=== PATIENT | female | born 1950 | race Caucasian/White ===

== ENCOUNTER → 2016-07-19 | Outpatient (CLI) | payer MEDICARE, OTHER ==
--- NOTE | 2016-07-19 12:08 | RAD ---
DATE: 07/19/2016 EXAM: MAMMO VIELKA SCREENING BILATERAL Bilateral digital screening mammography to include digital breast tomosynthesis (3D mammography) HISTORY: Screening study. COMPARISON: 11/26/2011 This study was interpreted with the benefit of Computerized Aided Detection (CAD). FINDINGS: Digital MLO and CC mammograms of both breasts were obtained. An additional digital MLO mammogram the left breast was obtained. Additionally digital breast tomosynthesis (3D mammography) images of both breasts in the MLO and CC projections were performed. Comparison study is dated 11/26/2011. The breast parenchyma is composed of scattered fibroglandular densities which can obscure a lesion on mammography (breast density code B). No spiculated mass is seen. No malignant appearing calcification or area of architectural distortion is noted. Benign-appearing and vascular calcifications are seen within both breasts, unchanged. Digital breast tomosynthesis images demonstrate no spiculated mass or malignant appearing calcification. Since the previous examination there has been no significant interval change. IMPRESSION: BI-RADS Category 1, negative. There is no mammographic evidence of malignancy. Routine yearly screening mammography is recommended for follow-up. BI-RADS CATEGORY: 1 NEGATIVE RECOMMENDED FOLLOW-UP: 12M 12 MONTH FOLLOW-UP PQRS compliance statement: Patient information was entered into a reminder system with a target due date 07/19/2017 for the next mammogram. Mammography is a sensitive method for finding small breast cancers, but it does not detect them all and is not a substitute for careful clinical examination. A negative mammogram does not negate a clinically suspicious finding and should not result in delay in biopsying a clinically suspicious abnormality. "Our facility is accredited by the [employer] Mammography Program."
== END | disposition home or self-care (01) ==
LOC: MAMMO 08:40
PROVIDERS: ATTEND Physician Assistant
DX: Z12.31 Encounter for screening mammogram for malignant neoplasm of breast (principal)
CPT/HCPCS: 77063; G0202; 77067

== ENCOUNTER 2016-10-29 13:47 | Emergency (ER) | payer MEDICARE, OTHER ==
[~2016-10-29] VITALS: Ht 165.1 cm; Wt 79.4 kg
--- NOTE | 2016-10-29 14:19 | PHYS DOC ---
Adult General Chief Complaint Chief Complaint: MULTIPLE COMPLAINTS HPI HPI Patient is a 66 year old F who presents with nausea and vomiting since last night. Patient states that she has some mild generalized abdominal tenderness with associated nausea and vomiting and diarrhea since last night. Patient denies any fevers. Patient denies any point tenderness. Patient denies any chest pain or shortness of breath. Patient states it is not related to food. Patient denies any dysuria. Patient has no other complaints. Review of Systems Review of Systems GEN: Denies fevers, chills, sweats HEENT: Denies blurred vision, sore throat CV: Denies chest pain RESP: Denies shortness of air, cough GI: n/v/d NEURO: Denies confusion, dizziness MSK: Denies weakness, joint pain/swelling Current Medications Current Medications Current Medications Medications (Trade) Dose Ordered Sig/Kaye Start Time Stop Time Status Last Admin Dose Admin Ondansetron HCl (Zofran Odt) 4 mg 1X ONCE 10/29/16 14:15 10/29/16 14:16 UNV Sodium Chloride 1,000 ml @ 1,000 mls/hr 1X ONCE 10/29/16 14:15 10/29/16 15:14 UNV Allergies Allergies Allergies Coded Allergies Type Severity Reaction Last Updated Verified No Known Drug Allergies 10/29/16 No Physical Exam Physical Exam GEN.: No apparent distress. Alert and oriented. HEENT: Head is normocephalic, atraumatic NECK: Supple. LUNGS: CTAB. HEART: RRR, S1, S2 present. Peripheral pulses intact ABDOMEN: Soft, nontender. Positive bowel sounds. EXTREMITIES: Without any cyanosis. NEUROLOGIC: Normal speech, normal tone PSYCHIATRIC: Normal affect, normal mood. SKIN: No ulcerations Current Patient Data Lab Results Laboratory Tests Test 10/29/16 14:16 White Blood Count 8.2 x10^3/uL Red Blood Count 4.41 x10^6/uL Hemoglobin 15.5 g/dL Hematocrit 45.9 % Mean Corpuscular Volume 104 fL Mean Corpuscular Hemoglobin 35 pg Mean Corpuscular Hemoglobin Concent 34 g/dL Red Cell Distribution Width 13.1 % Platelet Count 276 x10^3/uL Neutrophils (%) (Auto) 91 % Lymphocytes (%) (Auto) 4 % Monocytes (%) (Auto) 5 % Eosinophils (%) (Auto) 0 % Basophils (%) (Auto) 1 % Neutrophils # (Auto) 7.5 x10^3uL Lymphocytes # (Auto) 0.3 x10^3/uL Monocytes # (Auto) 0.4 x10^3/uL Eosinophils # (Auto) 0.0 x10^3/uL Basophils # (Auto) 0.0 x10^3/uL Sodium Level 145 mmol/L Potassium Level 4.5 mmol/L Chloride Level 106 mmol/L Carbon Dioxide Level 29 mmol/L Anion Gap 10 Blood Urea Nitrogen 33 mg/dL Creatinine 1.6 mg/dL Estimated GFR (Cockcroft-Gault) 32.1 BUN/Creatinine Ratio 21 Glucose Level 148 mg/dL Calcium Level 8.7 mg/dL Total Bilirubin 1.5 mg/dL Aspartate Amino Transf (AST/SGOT) 19 U/L Alanine Aminotransferase (ALT/SGPT) 22 U/L Alkaline Phosphatase 100 U/L Total Protein 7.2 g/dL Albumin 4.2 g/dL Albumin/Globulin Ratio 1.4 Current Medications Medications (Trade) Dose Ordered Sig/Kaye Route PRN Reason Start Time Stop Time Status Last Admin Dose Admin Sodium Chloride 1,000 ml @ 1,000 mls/hr 1X ONCE IV 10/29/16 14:30 10/29/16 15:29 DC 10/29/16 14:55 Ondansetron HCl (Zofran Odt) 4 mg 1X ONCE PO 10/29/16 14:30 10/29/16 14:31 DC 10/29/16 14:50 Iohexol (Omnipaque 300 Mg/ml) 75 ml 1X ONCE IV 10/29/16 14:30 10/29/16 14:31 DC EKG EKG [] Radiology/Procedures Radiology/Procedures History: Nausea, vomiting, diarrhea since Friday Comparison: CT abdomen and pelvis dated 06/22/2012 Technique: Helical CT of the abdomen and pelvis was performed from the lung bases through the ischial tuberosities. Axial and coronal reconstructions were obtained. Abdomen Findings: Patient motion. Bilateral linear opacities likely related atelectasis versus scarring. The visualized lung bases are otherwise clear. Evaluation of visceral organs is limited without intravenous contrast. Cholecystectomy The liver, spleen, pancreas, and bilateral adrenal glands are normal. Unchanged 4.5 x 4.5 cm simple, partially exophytic cyst off the interpolar region of the right kidney. Bilateral kidneys otherwise do not demonstrate focal abnormality. There is no hydronephrosis. Moderate sized hiatal hernia. Visualized loops of l small bowel are normal. Apparent fat stranding around multiple loops of bowel in the left hemiabdomen is secondary to patient motion. Mild colonic diverticulosis without evidence of diverticulitis. Fluid within the cecum and ascending colon. There is no evidence of bowel obstruction. Appendix appears within normal limits. There is no significant abdominal adenopathy. Mild atherosclerosis of the normal caliber abdominal aorta and its branches. Pelvis findings: Urinary bladder is decompressed limiting evaluation. Normal uterus and ovaries. There is no free fluid. There is no significant pelvic or inguinal adenopathy. There is no acute bony abnormality. Moderate multilevel degenerative changes of the visualized spine. Bilateral L5 pars defects. ANCILLARY FINDINGS: 1. Cholecystectomy. 2. Moderate-sized hiatal hernia. 3. Bilateral L5 pars defects.. IMPRESSION: 1. Fluid within the cecum and ascending colon consistent with patient's given history of diarrhea. 2. Mild clonic diverticulosis without evidence of diverticulitis.[] Course & Med Decision Making Course & Med Decision Making Pertinent Labs and Imaging studies reviewed. (See chart for details) ED course: Patient was seen and evaluated CBC, CMP, UA, CT scan of pelvis were ordered 1622: Discussed lab work and CT results with the daughter and patient, discussed plan to treat her urine with antibiotics and recommended short-term follow-up with PCP. Daughter at bedside to take an patient home, patient has no complaints MDM: After reviewing the chart, CC/HPI/PMH, physical exam, [lab results], [ radiological results], I do not believe the patient has an intra-abdominal emergency warranting further workup and/or admission at this time. We'll give the patient and back to treat for UTI. Daughter is comfortable taking the patient home. Patient is stable for discharge. Additional verbal discharge instructions were provided to the patient and that if symptoms get worse or any new symptoms arise that are worrisome to the patient she is to return to the emergency room immediately [] Dragon Disclaimer Dragon Disclaimer This chart was dictated in whole or in part using Voice Recognition software in a busy, high-work load, and often noisy Emergency Department environment. It may contain unintended and wholly unrecognized errors or omissions. Departure Departure: Impression: Primary Impression: UTI (urinary tract infection) Additional Impression: Nausea and vomiting Disposition: HOME, SELF-CARE Condition: IMPROVED Referrals: LYNDA FUNEZ PAC (PCP) Patient Instructions: Nausea and Vomiting, [id number], Urinary Tract Infection Additional Instructions: Please follow up with her family doctor next one to 2 days Scripts Nitrofurantoin Monohyd/M-Cryst (MACROBID 100 MG CAPSULE) 100 Mg Capsule 1 CAP PO BID, #14 CAP Prov: LITA WEST DO 10/29/16 Problem Qualifiers LITA WEST DO Oct 29, 2016 14:19
[2016-10-29 14:27] LABS: BASO % 1 % (0-3); EOS % 0 % (0-3); HEMATOCRIT 45.9 % (36.0-47.0); HEMOGLOBIN 15.5 g/dL (12.0-15.5); LYMPH # 0.3 x10^3/uL (1.0-4.8); LYMPH % 4 % (24-48); MEAN CORPUSCULAR HEMOGLOBIN 35 pg (25-35); MEAN CORPUSCULAR HGB CONC 34 g/dL (31-37); MEAN CORPUSCULAR VOLUME 104 fL (79-100); MONO # 0.4 x10^3/uL (0.0-1.1); MONO % 5 % (0-9); NEUT # 7.5 x10^3uL (1.8-7.7); NEUT % 91 % (31-73); PLATELET COUNT 276 x10^3/uL (140-400); RED BLOOD COUNT 4.41 x10^6/uL (3.50-5.40); RED CELL DISTRIBUTION WIDTH 13.1 % (11.5-14.5); WHITE BLOOD COUNT 8.2 x10^3/uL (4.0-11.0)
[2016-10-29] MEDS ORDERED: IOHEXOL 300 MG/ML 75 ML VIAL. IV ONE (14:30)
[2016-10-29] MEDS ORDERED: ONDANSETRON ODT 4 MG TAB.RAPDIS PO ONE (14:30)
[2016-10-29] MEDS ORDERED: IV NORMAL SALINE 1,000ML 1,000 ML IV ONE (14:30)
[2016-10-29 14:37] LABS: ALBUMIN 4.2 g/dL (3.4-5.0); ALBUMIN/GLOBULIN RATIO 1.4 (1.0-1.7); CALCIUM 8.7 mg/dL (8.5-10.1); CREATININE 1.6 mg/dL (0.6-1.0); GFR 32.1; POTASSIUM 4.5 mmol/L (3.5-5.1); TOTAL BILIRUBIN 1.5 mg/dL (0.2-1.0); TOTAL PROTEIN 7.2 g/dL (6.4-8.2)
[2016-10-29 14:55] VITALS: BP 120/87
--- NOTE | 2016-10-29 15:35 | RAD ---
CT ABDOMEN AND PELVIS WITHOUT IV CONTRAST History: Nausea, vomiting, diarrhea since Friday Comparison: CT abdomen and pelvis dated 06/22/2012 Technique: Helical CT of the abdomen and pelvis was performed from the lung bases through the ischial tuberosities. Axial and coronal reconstructions were obtained. Abdomen Findings: Patient motion. Bilateral linear opacities likely related atelectasis versus scarring. The visualized lung bases are otherwise clear. Evaluation of visceral organs is limited without intravenous contrast. Cholecystectomy The liver, spleen, pancreas, and bilateral adrenal glands are normal. Unchanged 4.5 x 4.5 cm simple, partially exophytic cyst off the interpolar region of the right kidney. Bilateral kidneys otherwise do not demonstrate focal abnormality. There is no hydronephrosis. Moderate sized hiatal hernia. Visualized loops of l small bowel are normal. Apparent fat stranding around multiple loops of bowel in the left hemiabdomen is secondary to patient motion. Mild colonic diverticulosis without evidence of diverticulitis. Fluid within the cecum and ascending colon. There is no evidence of bowel obstruction. Appendix appears within normal limits. There is no significant abdominal adenopathy. Mild atherosclerosis of the normal caliber abdominal aorta and its branches. Pelvis findings: Urinary bladder is decompressed limiting evaluation. Normal uterus and ovaries. There is no free fluid. There is no significant pelvic or inguinal adenopathy. There is no acute bony abnormality. Moderate multilevel degenerative changes of the visualized spine. Bilateral L5 pars defects. ANCILLARY FINDINGS: 1. Cholecystectomy. 2. Moderate-sized hiatal hernia. 3. Bilateral L5 pars defects.. IMPRESSION: 1. Fluid within the cecum and ascending colon consistent with patient's given history of diarrhea. 2. Mild clonic diverticulosis without evidence of diverticulitis. PQRS Compliance Statement: One or more of the following individualized dose reduction techniques were utilized for this examination: 1. Automated exposure control 2. Adjustment of the mA and/or kV according to patient size 3. Use of iterative reconstruction technique
[2016-10-29 16:13] LABS: BILIRUBIN,URINE NEG (NEG); CLARITY,URINE HAZY; COLOR,URINE YELLOW; GLUCOSE,URINE NEG (NEG)
[2016-10-29 16:14] LABS: BACTERIA,URINE FEW /HPF (0-FEW); NITRITE,URINE NEG (NEG); SQUAMOUS EPITHELIAL CELL,UR MOD /LPF; UROBILINOGEN,URINE 0.2 mg/dL (0.2 mg/dL)
[2016-10-29 16:15] LABS: HYALINE CASTS, URINE MANY /HPF
[2016-10-29] MEDS ORDERED: ACETAMINOPHEN 325 MG TABLET PO ONE (16:25)
[2016-10-29] MEDS ORDERED: NITR100C62 PO (16:25)
== END 2016-10-29 16:30 | disposition home or self-care (01) ==
LOC: ER 13:47
DX: N39.0 Urinary tract infection, site not specified (principal)
CPT/HCPCS: 36415; 74176; 80053; 81001; 85027; 87086; 96360; 99285; Q0162; J7030

== ENCOUNTER → 2018-11-16 | Outpatient (CLI) | payer MEDICARE, MEDICAID ==
[~2018-11-16] MED LIST: NITR100C62 PO
--- NOTE | 2018-11-16 16:21 | RAD ---
Exam: CT head INDICATION: Headache TECHNIQUE: Sequential axial images through the head were obtained without the administration of IV contrast. Comparisons: None FINDINGS: No focal parenchymal lesion or hemorrhage is identified. There is no midline shift or sulcal effacement. No acute vascular territory infarction is identified. Alvarado-white distinction is preserved. The ventricular system is within normal limits without compression hydrocephalus. The basal cisterns are well maintained. The visualized portions of the paranasal sinuses and mastoid air cells are well-pneumatized. No acute fractures. IMPRESSION: No acute intracranial abnormality. Exposure: One or more of the following in the visualized dose reduction techniques were utilized for this examination: 1. Automated exposure control 2. Adjustment of the MA and/or KV according to patient size Use of iterative of reconstructive technique Electronically signed by: Sheba Lorenzo MD (11/16/2018 4:18 PM) [facility]
== END | disposition home or self-care (01) ==
LOC: CT 15:54
PROVIDERS: ATTEND Physician Assistant
DX: R42 Dizziness and giddiness (principal); R51 Headache
CPT/HCPCS: 70450